=== PATIENT | female | born 1980 | race Asian ===

== ENCOUNTER 2019-03-25 09:30 | Emergency (ER) | payer OTHER ==
[~2019-03-25] VITALS: Ht 160 cm; Wt 81.6 kg
[2019-03-25 11:41] VITALS: BP 133/87; TEMP 98
== END 2019-03-25 11:48 | disposition home or self-care (01) ==
LOC: ED 09:30
DX: M54.5 Low back pain (principal); G89.29 Other chronic pain; M51.36 Other intervertebral disc degeneration, lumbar region
CPT/HCPCS: 80307; 81000; 81025; 96372; 99283; J1885; J2930

== ENCOUNTER 2019-05-02 11:44 | Outpatient (CLI) | payer OTHER | END 2019-05-02 23:38 | disposition home or self-care (01) | LOC: MRI 11:44 | DX: M54.5 Low back pain (principal) ==

== ENCOUNTER 2019-06-20 09:37 | Outpatient (CLI) | payer OTHER | END 2019-06-20 22:28 | disposition home or self-care (01) | LOC: RAD 09:37 | DX: Z13.820 Encounter for screening for osteoporosis (principal) ==